=== PATIENT | male | born 1975 | race Caucasian/White ===

== ENCOUNTER 2016-09-09 01:57 | Emergency (ER) | payer BC ==
--- NOTE | 2016-09-09 07:06 | ER ---
ADMIT: 09/09/2016 RM/LOC: ER [facility] MR#: [id number] [address] [facility] [id number] [place], [place] [id number] [place] [address] [facility] [address] [place] [address] Emergency Room Report SEX: M AGE: 40 : 1975 DATE: 09/09/2016 The patient is a 40-year-old male, complaining of chest tightness, cough, nasal stuffiness. Exam remarkable for nontoxic, afebrile male with diffuse audible wheeze throughout. Urticarial eruption and eczema noted. Treated with 2 DuoNeb, Solu-Medrol 125 mg IV push, magnesium 2 g IV piggyback. Home with prednisone 60 mg daily x5 days. Albuterol MDI with AeroChamber as needed. Doxycycline 100 mg b.i.d. #14, Sheron pot sinus wash b.i.d., followed by Flonase nasal spray and loratadine [address] Presley as needed. Kevin Bahena MD/ mariah JOB #: [id number] CC: Kevin Bahena MD, Attending Physician Ck Presley MD, Family Physician Ck Presley MD
== END 2016-09-09 03:16 | disposition home or self-care (01) ==
LOC: ER 01:57
DX: L30.9 Dermatitis, unspecified (principal); J45.909 Unspecified asthma, uncomplicated; I10 Essential (primary) hypertension; F17.210 Nicotine dependence, cigarettes, uncomplicated; Z88.0 Allergy status to penicillin; Z98.890 Other specified postprocedural states

== ENCOUNTER 2016-09-10 21:38 | Emergency (ER) | payer BC ==
--- NOTE | 2016-09-12 19:11 | ER ---
ADMIT: 09/10/2016 RM/LOC: ER [facility] MR#: [id number] [id number] [place], [place] [id number] ANTOINE SEYMOUR [address] [facility] [address] [place] [address] Emergency Room Report SEX: M AGE: 40 : 1975 DATE: 09/10/2016 CHIEF COMPLAINT: Swelling in right hand and left foot. HISTORY OF PRESENT ILLNESS: This is a pleasant 40-year-old male who presents to the ER for evaluation of his right hand and left foot. The patient states he was seen in the ER approximately two days ago for urticaria and bronchitis. He was prescribed a course of doxycycline as well as a course of prednisone 60 mg daily. The patient states he took his prednisone and doxycycline this morning as prescribed; however, throughout the day, he noticed increased swelling in his right hand and left foot. Patient was concerned this could be reaction to medication. The patient states he has also been experiencing increasing epigastric pain he describes as "heartburn." The patient states his right hand has a burning and tingling sensation. 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 He states he was doing this last night when he began noticing pain and subsequently started wearing gloves. The patient complains of generalized itchiness about his hands, is unsure of what exposure started his reaction. COURSE IN THE EMERGENCY ROOM: Patient was given 50 mg of diphenhydramine IM as well as GI cocktail. The patient was reexamined and stated his epigastric pain was much improved and his itchiness had been resolved. IMPRESSION: 1. Idiopathic urticaria. 2. Dyspepsia. DISPOSITION: The patient was discharged from the department in stable condition. He was encouraged to continue his prednisone and doxycycline as previously prescribed. He was encouraged to use Benadryl as needed for itchiness. He was told to use [id number] Tums or Pepcid or a similar product for the indigestion. He should follow up with Dr. Saldaña's clinic if he is not improving or has any other concerns. He was also told he could try to use some topical grcj-rqw-kqrzabw hydrocortisone cream on his hand to help with some of the itching and burning. Questions were sought and answered to the best of our ability and to the patient's satisfaction. He was discharged in stable condition. PHOENIX Brantley / Polo Mcneill MD / mariah JOB #: [id number] CC: Polo Mcneill MD, Attending Physician Be Aleman MD, Family Physician
== END 2016-09-10 23:00 | disposition home or self-care (01) ==
LOC: ER 21:38
DX: L50.1 Idiopathic urticaria (principal); R10.13 Epigastric pain; F17.210 Nicotine dependence, cigarettes, uncomplicated; Z90.49 Acquired absence of other specified parts of digestive tract; Z88.0 Allergy status to penicillin